=== PATIENT | female | born 1965 | race Caucasian/White ===

== ENCOUNTER → 2021-08-25 15:02 | Outpatient (CLI) | payer OTHER, SELFPAY ==
[2021-08-25 18:54] LABS: COVID19 -Nasal RAPID Negative (Negative)
== END ==
PROVIDERS: PCP Family Medicine; Visit Provider Specialist
DX: Z20.822 Contact with and (suspected) exposure to COVID-19 (principal); Z01.812 Encounter for preprocedural laboratory examination
CPT/HCPCS: 87635

== ENCOUNTER 2021-08-26 07:57 | Day surgery (SDC) | payer OTHER, SELFPAY ==
[2021-08-24 12:13] VITALS: BMI 34.2
[2021-08-26] VITALS (13 sets, daily range): BP systolic 103–134; BP diastolic 66–80; PULSE 71–96; RESP 10–16; TEMP 36.4–37.1; O2SAT 96–100; BMI 34.2
--- NOTE | 2021-08-26 08:17 | PM.PREOP ---
Pre-operative Note COVID-19 COVID-19 status: Negative Result date/Date tested (Pos, Neg/Pending): 08/25/21 Interval Note History & Physical reviewed/Exam performed by Physician: Yes Changes to H&P: No
[2021-08-26] MEDS: LACTATED RINGERS 1,000 ML 100 ML IV ×2 (08:39→14:07)
[2021-08-26] MEDS: FAMOTIDINE 20 MG/2 ML VIAL IV (09:32)
[2021-08-26] MEDS: CEFAZOLIN 1 GM VIAL 2 GM IV (09:45)
--- NOTE | 2021-08-26 10:00 | SUR.OPER ---
Lithotomy on padded OR bed, head on pillow, arms secured on padded arm boards at <90 degrees abduction. Legs secured in padded yellow fins stirrups.
[2021-08-26] MEDS: BUPIVACAINE 0.5% (PF) 30 ML, EPINEPHrine 0.15 MG INJ (10:06)
--- NOTE | 2021-08-26 11:00 | PM.OP.1 ---
Operative Date/Time/Diagnoses Date of procedure: 08/26/21 Time of procedure: 11:00 Pre-op diagnosis: Symptomatic cystocele and rectocele Post-op diagnosis: same Procedure & Clinicians Procedure: Anterior and posterior repair with sacrospinous ligament fixation and perineoplasty Same procedure as scheduled: Yes (Perineoplasty added due to more significant gaping of the introitus noted) Indications: Patient with symptomatic cystocele and rectocele without uterine prolapse Surgeon: Bree Mann Click Yes if Unassisted: Yes Anesthesia Type: General Operative Notes Findings: Cystocele prolapsing to the hymen, first-degree rectocele, no significant uterine prolapse, slightly gaping introitus Closure Type: primary Specimen(s): none sent Applied: catheter (Rodriguez) and other (Vaginal packing) Estimated Blood Loss (mL): 30 Blood products transfused: none Procedure in detail: Patient was brought to the operating room where she underwent general anesthesia. She was placed in low Yellofin stirrups and prepped and draped in the usual sterile fashion. Warming was in place. 2 g of Ancef were in prior to beginning of the case. Pulsatile stockings were in place and functional. A check system was reviewed with the staff in the room prior to beginning the case. A Rodriguez catheter was placed. The area of the cystocele and the rectocele was injected with a dilute solution of Marcaine with epinephrine. Incision was made over the cystocele with a scalpel. Dissection was undertaken laterally with sharp and blunt dissection. Plicating sutures of 0 Vicryl suture were placed followed by a layer of 2 0 Vicryl plicating sutures. The vaginal incision was repaired with running 2 0 Vicryl suture. Next a wedge-shaped section of tissue was taken out of the posterior fourchette with a scalpel. An incision was made over the rectocele with a scalpel. Dissection was undertaken laterally. 0 Prolene suture with the Capio passer was placed through the uterosacral ligament on the right side and sutured to the underside of the vagina. A finger was placed in the rectum to be sure there were no sutures placed through the rectal mucosa. The uterosacral suture was tightened down. Plication sutures with 0 Vicryl suture replaced over the rectocele. The vaginal incision was closed with 2-0 Vicryl suture. The perineal body was built up with 2-0 Vicryl suture and the skin closed with 2 0 Vicryl suture. Vaginal packing was placed in the vagina and the Rodriguez left in place. Vaginal packing was placed. Patient went to recovery room in good condition. Complications: none Post-operative Condition: stable Disposition: Acute Care (Patient will have Rodriguez catheter and vaginal packing removed in the a.m. and home after postvoid residual) Plan for aftercare: Routine post vaginal surgery
--- NOTE | 2021-08-26 11:42 | SUR.PHASEI ---
1132-Patient wide awake and alert,oriented x 4.Maew x4. niño to gravity,small amt clear yellow urine in bag.tolerating chips of ice. vss. meets criteria for transfer. no changes with peripad/packing vaginally. iv flushed with NS for transfer. minimal discomfort back and low abdomen,rates 1/10=refused pain meds offered. warm blanket posterior low back for comfort. report to RN by phone on center. To room 3 in Center with bag of belongings. no family present..
[2021-08-26] MEDS: OXYCODONE IR 5 MG TABLET PO ×2 (12:36→17:44)
[2021-08-26] MEDS: SERTRALINE 50 MG TABLET PO (12:38)
[2021-08-26 16:16] LABS: BUN Creatinine Ratio 24.6 (6-22); Blood Urea Nitrogen 14 mg/dL (7-17); Estimated Glomerular Filt Rate > 60.0 mL/min (>60)
--- NOTE | 2021-08-26 17:35 | PM.PNPO.1 ---
Subjective Subjective Date Patient Seen: 08/26/21 Time Patient Seen: 17:35 Interval history: Postoperative anterior and posterior repair with sacrospinous ligament fixation. Patient is over 6 hours after her surgery and is requesting removal of her vaginal packing and Rodriguez. Patient is not having any nausea. Exam Vital Signs (past 8 hours): - 08/26/21 10:55 08/26/21 11:00 08/26/21 11:05 Temperature 98.8 F Pulse Rate 96 H 87 84 Respiratory Rate 12 16 12 Blood Pressure 131/80 131/80 134/77 Pulse Oximetry 98 100 100 08/26/21 11:10 08/26/21 11:20 08/26/21 11:35 Temperature 97.5 F L 97.7 F Pulse Rate 79 77 79 Respiratory Rate 10 L 12 14 Blood Pressure 124/74 115/67 110/67 Pulse Oximetry 99 08/26/21 12:00 08/26/21 12:36 08/26/21 13:10 Temperature 97.9 F 97.9 F 98.3 F Pulse Rate 71 76 Respiratory Rate 14 16 Blood Pressure 112/73 112/72 Pulse Oximetry 98 97 Oxygen Delivery Method Room Air Oxygen Flow Rate 0 Narrative Exam Narrative: Vaginal packing removed and was moderately saturated with blood. Rodriguez catheter was removed. Objective Labs Result Diagrams: 08/26/21 15:52 Labs: Laboratory Results - last 24 hr 08/26/21 15:52 BUN 14 Creatinine 0.57 Estimated GFR > 60.0 BUN/Creatinine Ratio 24.6 H PFSH Medical History (Updated 08/17/21 @ 21:32 by Em Leos) Allergies Anxiety Chicken pox Chronic back pain Diabetes mellitus Esophageal ring Fibroids Melanoma (~2015) Ovarian cyst Shoulder pain Skin cancer (~2015) Uterine cyst Vertigo Surgical History (Updated 08/26/21 @ 10:54 by Bree Mann MD) Anesthesia History of section History of cholecystectomy (~2017) History of hand surgery (~2004) History of removal of cyst (~1988) Kidney stones (~2015) Family History (Updated 08/17/21 @ 21:35 by Em Leos) Father Diabetes mellitus Mother Cancer Sister Bladder cancer Grandmother Diabetes mellitus Daughter Leukemia Social History household members: spouse Smoking Status: Former smoker alcohol intake: former Assessment & Plan Post-op Postoperative Procedures: Procedures Operation Date: 08/26/21 09:15 Actual Procedure Side Surgeon p Anterior/Posterior Repair w. sacrospinous ligament fixation and Perineoplasty Bree Mann MD Postoperative day: 0 Postoperative status: doing well Postoperative plan: routine post-op care Postoperative plan narrative: Rodriguez catheter removed. Patient will undergo bladder trial. Rodriguez will be replaced if she is unable to urinate, or if she has a postvoid residual greater than 100 cc.
[2021-08-26] MEDS: KETOROLAC 30 MG/ML VIAL IV (17:45)
[2021-08-26] MEDS: DOCUSATE 100 MG CAPSULE 200 MG PO (20:43)
[2021-08-26] MEDS: METFORMIN HCL 500 MG TABLET 1000 MG PO (20:43)
--- NOTE | 2021-08-26 22:09 | PC.NURSE ---
at 2100, pt voided 600cc with PVR of 110cc. advised pt to try to empty bladder again now. after immediate second urination, PVR is 5cc. pt stated she felt as though she was better able to control the urine flow and completely empty her bladder. will cont to measure UOP.
[2021-08-27] MEDS: KETOROLAC 30 MG/ML VIAL IV ×2 (00:08→05:59)
[2021-08-27] MEDS: OXYCODONE IR 5 MG TABLET PO ×2 (00:08→06:00)
[2021-08-27] MEDS: ACETAMINOPHEN 325 MG TABLET 650 MG PO ×2 (00:09→06:00)
[2021-08-27 03:00] VITALS: BP 103/65; PULSE 73; RESP 18; TEMP 36.9; O2SAT 98
[2021-08-27 07:59] VITALS: TEMP 36.6
[2021-08-27 08:00] VITALS: BP 120/78; PULSE 86; RESP 18
--- NOTE | 2021-08-27 08:03 | PC.NURSE ---
Taken over care of patlient. Denies any concerns or pain at this time. states she wants to have a nap now. then eat her breakfast
[2021-08-27] MEDS: DOCUSATE 100 MG CAPSULE 200 MG PO (09:00)
[2021-08-27] MEDS: SERTRALINE 50 MG TABLET PO (09:00)
[2021-08-27] MEDS: METFORMIN HCL 500 MG TABLET 1000 MG PO (09:00)
--- NOTE | 2021-08-27 09:00 | PC.NURSE ---
medication given as prescribed
--- NOTE | 2021-08-27 09:02 | PM.DS.1 ---
History of Present Illness History of Present Illness Date Patient Seen: 08/27/21 Time Patient Seen: 09:03 Chief complaint: ANTERIOR POSTERIOR REPAIR SSLF *OPB* Narrative: Patient is status post anterior and posterior repair with sacrospinous ligament fixation and perineoplasty Discharge Providers Provider Discharge Date: 08/27/21 Primary care physician: Lior lEi MD Discharge provider: Bree Mann MD Summary Hospital Course Discharge Diagnosis: Cystocele, rectocele, gaping introitus Hospital Course: Patient underwent an anterior and posterior repair with sacrospinous ligament fixation and perineoplasty on 08/26/2021. Patient is able to urinate and has had a small bowel movement since removal of her Rodriguez catheter and packing last night. Patient states her pain is doing well. No nausea. She is ambulatory. Status at Discharge Cognitive/behavioral status at discharge: oriented Functional status at discharge: independent ambulation Overall status at discharge: patient is progressing back to baseline Time Spent with Patient Time spent: Less than 30 minutes Exam Vital Signs (past 8 hours): - 08/27/21 03:00 08/27/21 07:59 08/27/21 08:00 Temperature 98.4 F 97.8 F Pulse Rate 73 86 Respiratory Rate 18 18 Blood Pressure 103/65 120/78 Pulse Oximetry 98 Oxygen Delivery Method Room Air Oxygen Flow Rate 0 Narrative Exam Narrative: Patient's abdomen is soft, nontender. Minimal vaginal bleeding. Extremities without edema and nontender. Objective Labs Result Diagrams: 08/26/21 15:52 Labs: Laboratory Results - last 24 hr 08/26/21 15:52 BUN 14 Creatinine 0.57 Estimated GFR > 60.0 BUN/Creatinine Ratio 24.6 H [facility] Medical History (Updated 08/17/21 @ 21:32 by Em Leos) Allergies Anxiety Chicken pox Chronic back pain Diabetes mellitus Esophageal ring Fibroids Melanoma (~2015) Ovarian cyst Shoulder pain Skin cancer (~2015) Uterine cyst Vertigo Surgical History (Updated 08/26/21 @ 10:54 by Bree Mann MD) Anesthesia History of section History of cholecystectomy (~2017) History of hand surgery (~2004) History of removal of cyst (~1988) Kidney stones (~2015) Family History (Updated 08/17/21 @ 21:35 by Em Leos) Father Diabetes mellitus Mother Cancer Sister Bladder cancer Grandmother Diabetes mellitus Daughter Leukemia Social History household members: spouse Smoking Status: Former smoker alcohol intake: former Discharge Assessment & Plan Assessment and Plan Assessment: Patient is status post anterior and posterior repair with sacrospinous ligament fixation and perineoplasty doing well. Plan of Treatment: Patient is discharged home to be followed up in 2 weeks. Patient is to call for concerns such as fevers, inability urinate, pain or nausea that is not under control. Discharge Plan Discharge Plan Patient Disposition: Home Discharge orders & Medications Discharge Orders: Discharge (Order); Ordered 08/27/21 Ordered By: Bree Mann Prescriptions: Continued estradiol 10 mcg tablet See Rx Instructions .ROUTE .COMPLEX Qty: 90 RF: 3 metformin 1,000 mg tablet 1,000 mg PO BID RF: 0 Sophia-D 24 Hour 180-240 mg tablet extended release 24 hr 1 tab PO QAM RF: 0 sertraline 50 mg tablet 50 mg PO DAILY RF: 0 oxycodone 5 mg tablet 5 mg PO Q4H PRN (Reason: pain) Qty: 20 RF: 0 alprazolam 1 mg tablet 1 mg PO Q4-8H PRN (Reason: Anxiety) RF: 0 fluconazole 150 mg tablet 150 mg PO DIRECTED PRN (Reason: Sexual Activity) RF: 0 Follow up/Referrals: Bree Mann MD [Physician] - As previously scheduled (09/09/2021) Lior Eli MD [Primary Care Provider] - Diet/Activity/Treatments Diet: Regular Activity: Nothing in vagina or lifting over 20 lb for 6 weeks Skin/Wound/Dressing Care Report to your healthcare provider any signs of infection, such as:: chills, fever and increased pain Visit Report/Discharge Packet Stand Alone Forms: Surgery Discharge Discharge Data Primary Care Provider: Lior Eli Attending Provider: Bree Mann
--- NOTE | 2021-08-27 10:15 | PC.NURSE ---
Discharged in a satisfactory condition. discharge instructions given denies any questions or concerns at this time
== END 2021-08-27 10:15 | disposition home or self-care (01) ==
LOC: OR 07:58 → AC 08:00 → LABOR 12:25
PROVIDERS: PCP Family Medicine; Referring Provider Specialist; Visit Provider Specialist
PROC: (CPT 57282; principal; 2021-08-26 09:15)
DX: N81.10 Cystocele, unspecified (principal); N81.6 Rectocele; K21.9 Gastro-esophageal reflux disease without esophagitis; E11.9 Type 2 diabetes mellitus without complications; Z79.84 Long term (current) use of oral hypoglycemic drugs; E66.9 Obesity, unspecified; Z68.34 Body mass index [BMI] 34.0-34.9, adult
CPT/HCPCS: 57282; 57260; 36415; 82565; 82962; 84520; J0171; J0690; J1885; J2405; J2704; J3010